=== PATIENT | female | born 1955 | race Asian ===

== ENCOUNTER 2019-01-28 06:55 | Day surgery (SDC) | payer SELFPAY ==
[2019-01-27 17:14] VITALS: BMI 26.9
--- NOTE | 2019-01-27 18:16 | HP ---
DATE OF ADMISSION: 01/28/2019 PREOPERATIVE DIAGNOSED: Neck laxity. HISTORY: The patient is a 64-year-old [place] female seen in the office requesting improvement of her neck. The patient feels that her neck has been starting to sag and also looks pretty heavy underneath the chin. PAST MEDICAL HISTORY: Relevant for the following conditions: 1. Mild intermittent reactive airway disease, but it has been questioned. 2. Hypertension, controlled. 3. Hyperlipidemia. 4. Intolerant to all statins secondary to severe myalgias. 5. Pre-diabetes. 6. Epidural steroid injections for back pain in the past. 7. Non-alcoholic fatty liver disease. 8. Chronic colonic adenomas. 9. Mild intermittent reactive airway disease. 10. Reports are negative for cardiology evaluation. 11. No history of heart disease, stroke, TIA, diabetes, chronic kidney disease, pulmonary disease, prolonged bleeding, hypercoagulability or severe adverse reaction to anesthesia. 12. She had her [employer] examination in 2019, a mammogram in 2019. She is hepatitis C negative. Colonoscopy is due in 2019. 13. History of osteopenia. 14. Completed her shingles treatments. SOCIAL HISTORY: Nonsmoker. No alcohol. No drugs. Works as a teacher. PHYSICAL EXAMINATION: GENERAL: A very pleasant 64-year-old female. VITALS: Height is 5'1", weight is 150 pounds, BMI is 28.34. HEENT: Pupils are equal and reacting. She wears eyeglasses. NECK: Soft, fatty in appearance, worse underneath the chin. No lymph nodes. Laxity is 3+. CHEST: Good air entry. EXTREMITIES: No edema. No masses. ABDOMEN: Soft and nontender. FINAL DIAGNOSIS: 1 . Lipodystrophy, neck. 2. Neck laxity. PLANNED PROCEDURE: Excision of fat and neck tightening. This is to be done at [facility]. It is scheduled for January 28, 2019. Her lab work is being faxed. Her chest x-ray is within normal limits. Her heart has sinus rhythm. KEVIN HOLLEY M.D. [id number]
[~2019-01-28 06:55] MED LIST: CEFAZOLIN 1 GM in DEXTROSE 5%-WATER - 50 ML IVPB ONE
[2019-01-28] MEDS ORDERED: ceFAZolin SODIUM 1 GM VIAL ONE ×2 (07:59→17:08)
[2019-01-28] MEDS ORDERED: LIDOCAINE 1%-EPI 1:100,000 30 ML MDV IJ ONE ×2 (08:56→09:00)
[2019-01-28] MEDS ORDERED: BACITRACIN 15 GM TUBE TOPICAL OINTMENT ONE (08:56)
[2019-01-28] MEDS ORDERED: MIDAZOLAM HCL 2 MG/2 ML SINGLE DOSE VIAL ONE (09:13)
[2019-01-28] MEDS ORDERED: ceFAZolin SODIUM 1 GM VIAL IVPB ONE (10:02)
[2019-01-28] MEDS ORDERED: LIDOCAINE HCL 0.5% EPINEPHRINE 1:200,000 50 ML VIAL IJ ONE ×2 (10:40)
[2019-01-28] MEDS ORDERED: BACITRACIN 15 GM TUBE TOPICAL OINTMENT TP ONE (10:45)
[2019-01-28] MEDS ORDERED: DEXAMETHASONE SOD PHOSPHATE 4 MG/1 ML VIAL ONE (11:03)
[2019-01-28] MEDS ORDERED: ONDANSETRON 4 MG/2 ML VIAL ONE (11:03)
[2019-01-28] MEDS ORDERED: PROPOFOL 20 ML ONE ×2 (11:04→14:16)
[2019-01-28] MEDS ORDERED: ROCURONIUM BROMIDE 50 MG/5 ML SYRINGE ONE (11:10)
[2019-01-28] MEDS ORDERED: GLYCOPYRROLATE 0.2 MG/1 ML VIAL ONE (13:38)
[2019-01-28] MEDS ORDERED: NEOSTIGMINE METHYLSULFATE 0.5 MG/1 ML - 10 ML MDV ONE (13:38)
[2019-01-28] MEDS ORDERED: BUPIVACAINE HCL/PF 0.5% (5 MG/ML) 30 ML VIAL IJ ONE ×3 (13:49→13:56)
[2019-01-28] MEDS ORDERED: ACETAMINOPHEN INJECTION 100 ML IVPB ONE (14:51)
[2019-01-28] MEDS ORDERED: ONDANSETRON 4 MG/2 ML VIAL IVPUSH PRN ×2 (14:54→15:00)
[2019-01-28] MEDS ORDERED: ACETAMINOPHEN 1000 MG/100 ML VIAL (NON FORMULARY) IVPB ONE (14:57)
[2019-01-28] MEDS ORDERED: LACTATED RINGERS SOLUTION 1,000 ML IV SCH (15:00)
[2019-01-28] MEDS ORDERED: oxyCODONE HCL 5 MG TABLET PO PRN ×2 (15:00)
[2019-01-28] MEDS ORDERED: MORPHINE SULFATE 2 MG/ML VIAL IVPUSH PRN (15:05)
[2019-01-28] MEDS ORDERED: ACETAMINOPHEN 1000 MG/100 ML VIAL (NON FORMULARY) IVPB PRN (15:05)
[2019-01-28] MEDS ORDERED: DOCUSATE SODIUM 100 MG CAPSULE (FP) PO PRN (15:08)
[2019-01-28] MEDS ORDERED: SODIUM CHLORIDE 1,000 ML IV SCH (15:15)
[2019-01-28] MEDS ORDERED: DEXTROSE 5%-WATER - 50 ML IVPB ONE (17:08)
[2019-01-28] MEDS: CEFAZOLIN 1 GM in DEXTROSE 5%-WATER - 50 ML IVPB SCH (17:15)
--- NOTE | 2019-01-28 17:59 | RAPID ---
<Audrey Palma - Last Filed: 01/29/19 06:21> Physical Examination Vital Signs: Vital Signs Temperature 98.0 F 01/28/19 16:39 Pulse Rate 65 01/28/19 16:39 Respiratory Rate 14 01/28/19 16:39 Blood Pressure 124/66 01/28/19 16:39 O2 Sat by Pulse Oximetry (%) 97 01/28/19 16:39 Findings/Remarks: Rapid called by nurse for patient feeling difficulty with breathing. Patient oxygen saturation remained stable throughout. Patient evaluated and monitored during rapid. V 135/74 102 hr 98% o2 Physical: General: acute distress, tearing eyes Neck: large dressing covering anterior of neck, drain coming out Heart: RRR Lungs: CTAL Plan: #SOB - 2/2 to likely anxiety, r/o new infiltrate or fluid overload, patient is post op - CXR ordered, f/u . possible lasix if indicative of overload - EKG ordered - will monitor patient closely and attempt to notify primary PCP <Darren Light - Last Filed: 01/30/19 16:03> Physical Examination Vital Signs: Findings/Remarks: Mrs. Dobbins is a 64 y/o lady who is s/p neck lift on the day of the rapid response. Rapid was called due to acute onset SOB. At time of arrival ,Mrs. Dobbins was tachypnic but with Sat O2 of 94 % on RA. restof VS as per Dr. Palma note. She was awake, alert, and responding to commands. complained of leg cramps in b/l calves. a little diaphoretic. Nl Oropharynx, with Nl uvula . Heart was regular rhythm but tachy to 100-105. Lungs : with bibasilar crackles . No LE edema . Neck with a post op dressing covering all anterior aspect. Cxray was obtained and showed possible mild hilar congestion on my review. EKG showed sinus rhythm, with Nl [place]. No acute ischemic changes were found patient was diagnosed with pulmonary edema due to IVF administration in OR. 20 mg of lasix was given through IV line Patient started feeling better even before the IV lasix. Sx resolved completely after lasix. leg cramps resolved with resolution of hyperventilation VS were repeated. Nl sat O2 on RA. SBP 131. HR in 90s. Patient was left comfortable in bed. Dr. Cruz was notified. Critical Care Total Critical Care Time (in minutes): 40 Critical Care Statement: The care of this patient involved high complexity decision making to prevent further life threatening deterioration of the patient 's condition and/or to evaluate & treat vital organ system(s) failure or risk of failure.
[2019-01-28] MEDS ORDERED: FUROSEMIDE 40 MG/4 ML INJECTABLE VIAL IVPUSH STA (18:16)
--- NOTE | 2019-01-28 18:46 | OP ---
DATE OF OPERATION: DATE OF DICTATION: 01/28/2019 PREOPERATIVE DIAGNOSIS: Neck lipodystrophy. POSTOPERATIVE DIAGNOSIS: Neck lipodystrophy. PROCEDURES DONE: 1. Defattening neck. 2. Neck lift. SURGEON: Kevin Holley MD ANESTHESIOLOGIST: TYPE OF ANESTHESIA: General. INDICATIONS: A 64-year-old female of [place] descent requests improvement of her neck especially in the anterior aspect. She feels her neck is very fatty and would like to be reduced. DESCRIPTION OF PROCEDURE: Preoperative markings were carried out in the holding area. All aspects of surgery, risks, and complications were discussed prior to patient being for surgery. All questions had been answered including details outcomes. Patient was brought to the operating room with the markings. General anesthesia was administered by the anesthesiologist. Facial area, neck, and chest were cleaned with Hibiclens solution and then draped in a standard, aseptic manner. Surgery was started on the left side of her face. Incisions were made around the lobe as well as extending into the mastoid area. Prior to starting the procedure, the area was injected with diluted solution of 1% lidocaine with epinephrine. Dilution was 1:400,000. Then 0.25% lidocaine with epinephrine was used. It was 1:400,000. A total of 100 mL was given on the right side, 100 mL was given on the left side. Draping was done in a standard manner. Surgery was done under loupe magnification of 2.5 with a headlight. Incision was made along the lobule going into the mastoid. Flaps were dissected. Care was taken to stay above the external jugular vein, which was marked in the preoperative setting. Care was also taken to malissa the nerve. Dissection was a combination with iris scissors as well as cautery. Neck was found to be significantly fatty. Once the dissection was carried off the sternocleidomastoid, it was easier dissection. Next, incision was made on the right preauricular and postauricular, and dissection was similar to the left side. Flaps were elevated over the platysma muscle as well as sternocleidomastoid was found to be most adhesive. Next, the dissection proceeded in the anterior aspect of the neck. Ligaments were released. This part of the dissection was more tedious. Incision was made in the neck just below the mandible. Patient is aware that she has a very short chin and would benefit from chin implant. The submental area was dissected anteriorly. Significant amount of fat was found in the submandibular area. This was excised in toto using technique of cauterization and gentle pushing. Most of the fat was located in the middle and underneath the platysma. This was excised. Hemostasis was secured. In the midline, vein had to be cauterized. Further dissection was carried down to the clavicular area. Care was taken to avoid any injury to the thyroid cartilage, cricoid cartilage. Hemostasis was secured as the dissection proceeded. Repair of the platysma muscle plus dermoplasty was carried out using 3-0 Monocryl tapered needle. Suture was started just below the chin. It was then extended along the midline and down to the level of the thyroid cartilage. Corset was carried out. The suture was then reversed and returned back to the site of origin. Another 2nd layer of similar suture was carried out where the muscle was again tightened giving further definition to the neck. Following the muscle repair, right side of the neck was then dissected over the sternocleido muscle. Care taken not to injury the external jugular and the inferior auricular nerve. Drains, 2 J-P drains were used, 1 under the mandible, a 2nd was around the lowest most part of the neck. Each was brought out separately through a stab wound in the mastoid area. It was sutured with a silk suture stay sutures. Incision lines were repaired with 5-0 Vicryl and 4-0 running plain gut. Steri-Strips were applied, Xeroform, bacitracin followed by foam along the neck anterior aspect. All this was then wrapped with Kerlix. J-P drains were brought separately both on the right and the left side. Estimated blood loss was minimal, less than 50 mL. Patient was sent to recovery room in a satisfactory. Prior to surgery, patient had SCDs supplied for both the legs. Singh catheter was also inserted. Prior to starting the incision, patient received 1 g of Ancef. Was sent to recovery room in a stable condition. KEVIN HOLLEY M.D. [id number]
[2019-01-28] MEDS ORDERED: ACETAMINOPHEN 500 MG TABLET (FP) PO PRN (21:00)
[2019-01-28] MEDS: HYDROCHLOROTHIAZIDE 12.5 MG CAPSULE (FP) PO SCH (21:32)
[2019-01-28] MEDS: LISINOPRIL 10 MG TABLET (FP) PO SCH (21:32)
[2019-01-28] MEDS ORDERED: HYDROCHLOROTHIAZIDE PO SCH (22:00)
[2019-01-28] MEDS ORDERED: LISINOPRIL PO SCH (22:00)
[2019-01-28] MEDS ORDERED: [UNRECOGNIZED DRUG - OTHER] PO SCH (22:00)
[2019-01-29] MEDS ORDERED: DEXTROSE 5%-WATER - 50 ML IVPB ONE (02:02)
[2019-01-29] MEDS ORDERED: ceFAZolin SODIUM 1 GM VIAL ONE (02:02)
[2019-01-29] MEDS: CEFAZOLIN 1 GM in DEXTROSE 5%-WATER - 50 ML IVPB SCH (02:10)
[2019-01-29] MEDS: HYDROCHLOROTHIAZIDE 12.5 MG CAPSULE (FP) PO SCH (09:03)
[2019-01-29] MEDS: LISINOPRIL 10 MG TABLET (FP) PO SCH (09:03)
[2019-01-29 10:09] VITALS: BP 122/65; PULSE 82; TEMP 98.3
--- NOTE | 2019-01-29 10:59 | OP ---
Operative Note - Note: Operative Date: 01/29/19 Pre-Operative Diagnosis: neck laxity Operation: s/p neck lift Surgeon: Ghulam Cruz Filling Machine Set Up Mechanic: Jeannine Dewey Anesthesiologist/[employer] OFFICER: Romario Zambrano Anesthesia: General Estimated Blood Loss (mls): 20 Fluid Volume Replaced (mls): 1,500 Operative Report Dictated: Yes
--- NOTE | 2019-01-31 20:29 | EKG ---
Test Reason : Blood Pressure : / mmHG Vent. Rate : 091 BPM Atrial Rate : 091 BPM P-R Int : 164 ms QRS Dur : 076 ms QT Int : 400 ms P-R-T Axes : 051 030 061 degrees QTc Int : 492 ms NORMAL SINUS RHYTHM POSSIBLE LEFT ATRIAL ENLARGEMENT PROLONGED QT ABNORMAL ECG NO PREVIOUS ECGS AVAILABLE Confirmed by EKTA KAN MD ([id number]) on 01/31/2019 8:29:37 PM Referred By: Ghulam Cruz Confirmed By:EKTA KAN MD
== END 2019-01-29 12:34 | disposition home or self-care (01) ==
LOC: SUATTDRO 06:55 → JASUSAT 06:55 → J4S 17:03 → JASUSAT 01-29 12:34
PROVIDERS: ATTEND Plastic Surgery
PROC: 0W060ZZ Alteration of Neck, Open Approach (ICD-10-PCS; principal; 2019-01-28 09:00)
DX: E88.1 Lipodystrophy, not elsewhere classified (principal)
CPT/HCPCS: 71045-TC-FY; 93005; 93010; 94760; J0131; J7030

== ENCOUNTER 2021-08-21 04:12 | Day surgery (SDC) | payer OTHER ==
[2021-08-17 14:17] VITALS: BMI 26.9
[2021-08-21] MEDS ORDERED: DEXAMETHASONE SOD PHOSPHATE 10 MG/1 ML VIAL ONE (07:11)
[2021-08-21] MEDS ORDERED: LIDOCAINE HCL/PF 1% SDV 5ML VIAL ONE (07:11)
[2021-08-21 12:05] VITALS: TEMP 98.8
[2021-08-21] MEDS ORDERED: IOHEXOL 180 MG/1 ML ML IJ ONE (13:43)
[2021-08-21] MEDS ORDERED: LIDOCAINE HCL 1%, 10 MG/ML (50 mL VIAL) INF ONE (13:44)
[2021-08-21] MEDS ORDERED: DEXAMETHASONE SOD PHOSPHATE 10 MG/1 ML VIAL IM ONE (13:45)
[2021-08-21 14:20] VITALS: BP 136/71; PULSE 70
== END 2021-08-21 14:20 | disposition home or self-care (01) ==
LOC: JASU-SURG 04:12
PROVIDERS: ATTEND Pain Medicine Pain Medicine
PROC: 3E0R3BZ Introduction of Anesthetic Agent into Spinal Canal, Percutaneous Approach (ICD-10-PCS; principal; 2021-08-21 14:30)
DX: M54.16 Radiculopathy, lumbar region (principal); I10 Essential (primary) hypertension
CPT/HCPCS: 76000-TC-FY; J1100

== ENCOUNTER 2022-08-28 06:14 | Day surgery (SDC) | payer OTHER ==
[2022-08-26 15:33] VITALS: BMI 27.2
[2022-08-28] MEDS ORDERED: MIDAZOLAM HCL 2 MG/2 ML SINGLE DOSE VIAL ONE ×2 (07:04→08:05)
[2022-08-28] MEDS ORDERED: PROPOFOL 20 ML ONE (07:05)
[2022-08-28] MEDS ORDERED: BUPIVACAINE HCL/PF 0.5% (5MG/ML) 10 ML VIAL ONE (07:08)
[2022-08-28] MEDS ORDERED: BUPIVACAINE LIPOSOME/PF (EXPAREL) 266 MG/20 ML VIAL ONE (07:10)
[2022-08-28] MEDS ORDERED: BUPIVACAINE HCL/PF 0.5% (5 MG/ML) 30 ML VIAL IJ ONE (07:10)
[2022-08-28] MEDS ORDERED: CEFAZOLIN 2 GM in DEXTROSE 5%-WATER - 50 ML IVPB ONE (07:30)
[2022-08-28] MEDS ORDERED: TRANEXAMIC ACID 1000 MG/10 ML VIAL IVPUSH ONE (08:30)
[2022-08-28] MEDS ORDERED: ONDANSETRON 4 MG/2 ML VIAL ONE (08:54)
[2022-08-28] MEDS ORDERED: KETOROLAC TROMETHAMINE 30 MG/1 ML VIAL ONE (08:54)
[2022-08-28] MEDS ORDERED: TRANEXAMIC ACID 1000 MG/10 ML VIAL ONE (08:54)
[2022-08-28] MEDS ORDERED: ceFAZolin SODIUM 1 GM VIAL ONE (08:54)
[2022-08-28] MEDS ORDERED: DEXAMETHASONE SOD PHOSPHATE 4 MG/1 ML VIAL ONE (08:54)
[2022-08-28] MEDS ORDERED: ACETAMINOPHEN INJECTION 100 ML IVPB ONE (09:34)
[2022-08-28] MEDS ORDERED: oxyCODONE HCL 5 MG TABLET PO PRN (09:43)
[2022-08-28] MEDS ORDERED: MAGNESIUM HYDROX 2400MG/30ML ORAL SUSPENSION 30 ML CUP PO PRN (09:43)
[2022-08-28] MEDS ORDERED: ONDANSETRON 4 MG/2 ML VIAL IVPUSH PRN ×2 (09:43→09:53)
[2022-08-28] MEDS ORDERED: MAG HYDROX/AL HYDROX/SIMETH 30 ML UNIT-DOSE CUP PO PRN (09:43)
[2022-08-28] MEDS ORDERED: SODIUM CHLORIDE 1,000 ML IV SCH (10:00)
[2022-08-28] MEDS ORDERED: LACTATED RINGERS SOLUTION 1,000 ML IV SCH (10:00)
[2022-08-28] MEDS ORDERED: KETOROLAC TROMETHAMINE 30 MG/1 ML VIAL IVPUSH SCH ×2 (10:00→18:00)
[2022-08-28] MEDS ORDERED: ALBUTEROL SO4 HFA INHALER IH PRN ×2 (10:00→10:23)
[2022-08-28] MEDS ORDERED: oxyCODONE HCL 10 MG SUSTAINED ACTING TABLET PO SCH (10:00)
[2022-08-28] MEDS: ACETAMINOPHEN 1000 MG/100 ML BAG IVPB SCH ×2 (10:11→18:23)
[2022-08-28] MEDS: MULTIVITAMINS (DAILY MVI) TABLET (FP) PO SCH (14:58)
[2022-08-28] MEDS: SENNOSIDES/DOCUSATE COMBO (SENNA PLUS) TABLET (UD) PO SCH ×2 (14:59→21:36)
[2022-08-28] MEDS: POTASSIUM CHLORIDE TABS 20 MEQ TABLET.ER (FP) PO SCH (14:59)
[2022-08-28] MEDS: FAMOTIDINE 20 MG TABLET PO SCH ×2 (14:59→21:36)
[2022-08-28] MEDS: LISINOPRIL 20 MG TABLET PO SCH (14:59)
[2022-08-28] MEDS: CEFAZOLIN SODIUM 2 GM in DEXTROSE 5%-WATER 100 ML IVPB SCH ×2 (15:13→23:30)
[2022-08-28] MEDS: HYDROCHLOROTHIAZIDE 12.5 MG CAPSULE (FP) PO SCH (18:22)
[2022-08-28] MEDS: CELECOXIB 100 MG CAPSULE PO SCH ×2 (18:22→21:36)
[2022-08-28 19:27] VITALS: RESP 18
[2022-08-28] MEDS: oxyCODONE HCL 5 MG TABLET PO PRN (19:39)
[2022-08-28] MEDS ORDERED: ACETAMINOPHEN 1000 MG/100 ML BAG IVPB SCH (21:00)
[2022-08-28] MEDS: ASPIRIN 81 MG CHEWABLE TABLETS PO SCH (21:35)
[2022-08-29] MEDS: ACETAMINOPHEN 1000 MG/100 ML BAG IVPB SCH ×2 (04:00→09:48)
[2022-08-29] MEDS: oxyCODONE HCL 5 MG TABLET PO PRN (06:03)
[2022-08-29 06:32] VITALS: BP 140/71; PULSE 78; TEMP 98.3
[2022-08-29] MEDS: LISINOPRIL 20 MG TABLET PO SCH (09:45)
[2022-08-29] MEDS: SENNOSIDES/DOCUSATE COMBO (SENNA PLUS) TABLET (UD) PO SCH (09:45)
[2022-08-29] MEDS: ASPIRIN 81 MG CHEWABLE TABLETS PO SCH (09:46)
[2022-08-29] MEDS: FAMOTIDINE 20 MG TABLET PO SCH (09:46)
[2022-08-29] MEDS: MULTIVITAMINS (DAILY MVI) TABLET (FP) PO SCH (09:46)
[2022-08-29] MEDS: HYDROCHLOROTHIAZIDE 12.5 MG CAPSULE (FP) PO SCH (09:46)
[2022-08-29] MEDS: CELECOXIB 100 MG CAPSULE PO SCH (09:46)
[2022-08-29] MEDS: POTASSIUM CHLORIDE TABS 20 MEQ TABLET.ER (FP) PO SCH (09:46)
[2022-08-29] MEDS ORDERED: DEXAMETHASONE 4 MG TABLET (FP) PO ONE (10:00)
== END 2022-08-29 11:17 | disposition home or self-care (01) ==
LOC: FASUSAT 06:14 → FM/S 11:20 → FASUSAT 08-29 11:17
PROVIDERS: ATTEND Orthopaedic Surgery
PROC: 0SRD0J9 Replacement of Left Knee Joint with Synthetic Substitute, Cemented, Open Approach (ICD-10-PCS; principal; 2022-08-28 08:08)
DX: M17.12 Unilateral primary osteoarthritis, left knee (principal)
CPT/HCPCS: 27447; C1776; 73560-TC-LT-FY; 73562-TC-LT-FY; 94760; 97010-GP; 97116-GP; 97162-GP; C1889

== ENCOUNTER 2022-11-26 05:25 | Day surgery (SDC) | payer OTHER ==
[2022-11-25 16:59] VITALS: BMI 29.2
[2022-11-26 09:16] VITALS: RESP 18
[2022-11-26] MEDS ORDERED: DEXAMETHASONE SOD PHOSPHATE 10 MG/1 ML VIAL IVPUSH ONE (10:31)
[2022-11-26] MEDS ORDERED: LIDOCAINE HCL 1% PRESERVATIVE FREE - 30ML VIAL IJ ONE (10:31)
[2022-11-26] MEDS ORDERED: IOHEXOL 180 MG/1 ML ML IJ ONE (10:32)
[2022-11-26 10:59] VITALS: TEMP 97.5
[2022-11-26 11:16] VITALS: BP 133/70; PULSE 78
== END 2022-11-26 11:10 | disposition home or self-care (01) ==
LOC: JASU-SURG 05:25
PROVIDERS: ATTEND Pain Medicine Pain Medicine
PROC: 3E0R3BZ Introduction of Anesthetic Agent into Spinal Canal, Percutaneous Approach (ICD-10-PCS; 2022-11-26)
PROC: 3E0R33Z Introduction of Anti-inflammatory into Spinal Canal, Percutaneous Approach (ICD-10-PCS; principal; 2022-11-26 11:15)
DX: M54.16 Radiculopathy, lumbar region (principal)
CPT/HCPCS: 76000-TC-FY; J1100

== ENCOUNTER 2023-02-02 08:12 | Emergency (ER) | payer OTHER ==
[2023-02-02 08:28] VITALS: BP 140/89; PULSE 89; RESP 18; TEMP 99; BMI 27.4
== END 2023-02-02 09:20 | disposition home or self-care (01) ==
LOC: FER 08:12
DX: R05.9 Cough, unspecified (principal); R09.81 Nasal congestion; R50.9 Fever, unspecified; J06.9 Acute upper respiratory infection, unspecified
CPT/HCPCS: 71046-TC-FY; 99283-25

== ENCOUNTER 2023-08-14 18:24 | Emergency (ER) | payer OTHER ==
[2023-08-14 19:02] LABS: HEMATOCRIT 43.6 % (32.4-45.2); HEMOGLOBIN 14.4 G/dL (10.7-15.3); MCHC 32.9 g/dl (32.0-36.0); MEAN CELL VOLUME 97.1 fl (80-96); MEAN PLT VOLUME 9.7 fl (7.5-11.1); PLATELET COUNT 221.5 10^3/uL (134-434); RBC 4.49 10^6/uL (3.60-5.2)
[2023-08-14 19:07] VITALS: BP 142/86; PULSE 112; RESP 18; TEMP 98.7; BMI 30.7
[2023-08-14 19:41] LABS: INR 0.86 (0.83-1.09)
[2023-08-14 19:43] LABS: ACTIVATED PTT 26.4 SECONDS (25.2-36.5)
[2023-08-14 20:09] LABS: MACROCYTOSIS 1+
[2023-08-14 20:10] LABS: PLATELET ESTIMATE ADEQUATE
[2023-08-14 20:30] LABS: PROTHROMBIN TIME (PATIENT) 9.8 SEC (9.7-13.0)
[2023-08-14 20:33] LABS: ALBUMIN 4.1 g/dl (3.4-5.0); ALK PHOS 60 U/L (45-117); ANION GAP 8 mmol/L (4-13); BILIRUBIN,TOTAL 0.5 mg/dl (0.2-1); CALCIUM 9.5 mg/dl (8.5-10.1); CHLORIDE 102 mmol/L (98-107); CO2 27 mmol/L (21-32); CREATININE 0.6 mg/dl (0.6-1.3); GLUCOSE,RANDOM 162 mg/dl (74-106); SGOT/AST 99 U/L (15-37); SGPT/ALT 52 U/L (7-52); SODIUM 137 mmol/L (136-145); TOT PROT 7.4 g/dl (6.4-8.2)
[2023-08-14 20:34] LABS: POTASSIUM 6.5 mmol/L (3.5-5.1)
[2023-08-15 11:20] LABS: N-TERMINAL BNP 30.1 pg/ml (5-125)
== END 2023-08-14 19:30 | disposition home or self-care (01) ==
LOC: FER 18:24
DX: R00.0 Tachycardia, unspecified (principal); R06.09 Other forms of dyspnea; R63.5 Abnormal weight gain; R60.9 Edema, unspecified
CPT/HCPCS: 36415; 71046-TC-FY; 80053; 82550; 83880; 84439; 84443; 84484; 85027; 85379; 85610; 85730; 93005; 99285-25

== ENCOUNTER 2024-04-09 07:29 | Emergency (ER) | payer BC, MEDICARE ==
[2024-04-09 07:47] VITALS: BP 119/64; PULSE 92; RESP 17; TEMP 98.8; BMI 25.0
[2024-04-09] MEDS ORDERED: ACETAMINOPHEN 500 MG TABLET (FP) ONE (08:32)
[2024-04-09] MEDS: ACETAMINOPHEN 500 MG TABLET (FP) PO ONE (08:34)
[2024-04-09] MEDS ORDERED: DEXAMETHASONE SOD PHOSPHATE 10 MG/1 ML VIAL ONE (08:51)
[2024-04-09] MEDS: DEXAMETHASONE LIQUID 0.5 MG/5 ML PO ONE (08:53)
== END 2024-04-09 09:31 | disposition home or self-care (01) ==
LOC: FER 07:29
DX: J10.1 Influenza due to other identified influenza virus with other respiratory manifestations (principal); R05.9 Cough, unspecified; R50.9 Fever, unspecified; R09.81 Nasal congestion; M79.10 Myalgia, unspecified site; R63.0 Anorexia; R11.10 Vomiting, unspecified; R19.7 Diarrhea, unspecified; R07.9 Chest pain, unspecified; Z20.822 Contact with and (suspected) exposure to COVID-19
CPT/HCPCS: 0241U-QW; 71046-TC-FY; 93005; 99285-25

== ENCOUNTER 2024-08-11 08:14 | Day surgery (SDC) | payer BC, MEDICARE ==
[2024-08-05 12:42] VITALS: BMI 24.3
[2024-08-11] MEDS ORDERED: PROPOFOL 20 ML ONE (09:10)
[2024-08-11 10:00] VITALS: RESP 19; TEMP 98
[2024-08-11 10:02] VITALS: BP 118/66; PULSE 70
== END 2024-08-11 10:00 | disposition home or self-care (01) ==
LOC: FASU-ENDO 08:14
PROVIDERS: ATTEND Internal Medicine Gastroenterology
PROC: 0DBN8ZX Excision of Sigmoid Colon, Via Natural or Artificial Opening Endoscopic, Diagnostic (ICD-10-PCS; principal; 2024-08-11 09:25)
DX: Z12.11 Encounter for screening for malignant neoplasm of colon (principal); K63.5 Polyp of colon
CPT/HCPCS: 88305-TC